=== PATIENT | male | born 1955 ===

== ENCOUNTER 2017-01-05 10:33 | Emergency (ER) | payer OTHER ==
[2017-01-05 11:03] VITALS: BP 140/92; PULSE 87; RESP 18; TEMP 96; O2SAT 99
--- NOTE | 2017-01-05 11:04 | ED PDOC ---
HPI: Skin/Bite Injury Time Seen by Provider: 01/05/17 10:48 Chief Complaint (Nursing): Abnormal Skin Integrity Chief Complaint (Provider): rash History Per: Patient Additional Complaint(s): 61-year-old male presents to emergency department with itchy rash to left arm that started one week ago and has now spread to his torso. Patient thinks he may have used a new lotion that caused the reaction. He denies any fever or chills, denies any throat discomfort and difficulty breathing. Patient has been applying aloe and Benadryl cream but he states the rash is worsening. Patient states left arm is now red and slightly swollen secondary to excess scratching. Denies recent travel. Past Medical History Reviewed: Historical Data, Nursing Documentation, Vital Signs - Medical History PMH: No Chronic Diseases - Surgical History Surgical History: Back Surgery - Family History Family History: States: No Known Family Hx - Living Arrangements Living Arrangements: With Family - Social History Current smoker - smoking cessation education provided: No Alcohol: Social Drugs: Denies - Home Medications Home Medications: Ambulatory Orders Medication Instructions Recorded Aspirin [Ecotrin] 81 mg PO DAILY #0 tabec 07/27/15 Atorvastatin [Lipitor] 10 mg PO DAILY #0 tab 07/27/15 Losartan [Cozaar] 25 mg PO DAILY #0 tab 07/27/15 Sulfamethoxazole/Trimethoprim 1 tab PO BID #14 tab 07/27/15 [Bactrim DS Tab] Valacyclovir HCl [Valtrex] 500 mg PO BID #14 tablet 07/27/15 amLODIPine [Norvasc] 10 mg PO DAILY #0 tab 07/27/15 Clindamycin [Cleocin] 300 mg PO TID #21 cap 01/05/17 Prednisone 50 mg PO DAILY #5 tablet 01/05/17 - Allergies Allergies/Adverse Reactions: Allergies Allergy/AdvReac Type Severity Reaction Status Date / Time No Known Allergies Allergy Verified 07/17/15 20:30 Review of Systems ROS Statement: Except As Marked, All Systems Reviewed And Found Negative Constitutional: Negative for: Fever ENT: Negative for: Throat Swelling Cardiovascular: Negative for: Chest Pain Respiratory: Negative for: Cough, Shortness of Breath, SOB with Exertion Skin: Positive for: Rash Physical Exam - Reviewed Nursing Documentation Reviewed: Yes Vital Signs Reviewed: Yes - Physical Exam Appears: Positive for: Well, Non-toxic, No Acute Distress Skin: Positive for: Rash (Maculopapular and urticarial lesions noted to left arm and torso. Skin excoriations, erythema and slight warmth noted locally to left arm consistent with mild cellulitis with no abscess formation) Cardiovascular/Chest: Positive for: Regular Rate, Rhythm Respiratory: Positive for: Normal Breath Sounds Back: Positive for: Normal Inspection Extremity: Negative for: Pedal Edema Neurologic/Psych: Positive for: Alert, Oriented - ECG O2 Sat by Pulse Oximetry: 99 Pulse Ox Interpretation: Normal Medical Decision Making Medical Decision Making: Impression: Allergic dermatitis Plan: IM Solu-Medrol Rx given for prednisone. Patient was advised to continue with Benadryl. Patient instructed to discontinue use of topical creams. Will also provide prescription for Clindamycin secondary to left forearm cellulitis. Patient was instructed to follow-up with primary doctor or clinic in 2-3 days and he is aware he can return to emergency department any time if acutely worse. Disposition - Clinical Impression Clinical Impression: Allergic dermatitis - Patient ED Disposition Is Patient to be Admitted: No Counseled Patient/Family Regarding: Diagnosis, Need For Followup, Rx Given - Disposition Referrals: [facility] [Outside] Disposition: Routine/Home Disposition Time: 11:06 Condition: STABLE Additional Instructions: Discontinue use of topical creams. Keep area clean and dry. Take prescription medications as directed. Take 2 tablets of Benadryl [id number] every 6 hours. Follow-up with clinic or primary doctor in 2-3 days. Prescriptions: Clindamycin [Cleocin] 300 mg PO TID #21 cap Prednisone 50 mg PO DAILY #5 tablet Instructions: Urticaria (ED), Dermatitis (ED)
== END 2017-01-05 12:34 | disposition home or self-care (01) ==
LOC: H.ER 10:33
DX: L23.9 Allergic contact dermatitis, unspecified cause (principal); L03.114 Cellulitis of left upper limb
CPT/HCPCS: 96372; 99283; J2930

== ENCOUNTER 2018-06-03 21:32 | Emergency (ER) | payer SELFPAY ==
[2018-06-03 21:58] VITALS: RESP 16
[2018-06-03] MEDS ORDERED: Sodium Chloride 0.9% 1,000 ML IV STA (22:32)
--- NOTE | 2018-06-03 22:50 | ED PDOC ---
HPI: General Adult Time Seen by Provider: 06/03/18 22:25 Chief Complaint (Nursing): Dizziness/Lightheaded Chief Complaint (Provider): Dizziness, Chills, Weakness History Per: Patient History/Exam Limitations: no limitations Onset/Duration Of Symptoms: Hrs (since this morning) Current Symptoms Are (Timing): Still Present Additional Complaint(s): 62 year old male presents to the ED for evaluation of dizziness, chills, weakness, and decreased appetite since waking up this morning. Patient reports that he had a previous diagnosis of high blood pressure, but is not on meds because he was been controlling it with lifestyle changes. Denies nausea, vomiting, and fever. He states he took Aspirin which helped, but the garlic his friend gave him did not help. Additionally, patient complaining of worsening severe right shoulder pain s/p sleeping on it oddly two weeks ago. He notes a history of right shoulder pain after falling off a ladder two years ago. PMD: none provided Past Medical History Reviewed: Historical Data, Nursing Documentation, Vital Signs Vital Signs: Last Vital Signs Temp 98.2 F 06/03/18 21:55 Pulse 80 06/03/18 21:55 Resp 16 06/03/18 21:55 BP 153/100 H 06/03/18 21:55 Pulse Ox 98 06/03/18 21:55 - Medical History PMH: HTN (previous diagnosis controlled by lifestyle changes) - Surgical History Surgical History: Back Surgery - Family History Family History: States: Unknown Family Hx - Social History Current smoker - smoking cessation education provided: No - Home Medications Home Medications: Ambulatory Orders Medication Instructions Recorded Aspirin [Ecotrin] 81 mg PO DAILY #0 tabec 07/27/15 Atorvastatin [Lipitor] 10 mg PO DAILY #0 tab 07/27/15 Losartan [Cozaar] 25 mg PO DAILY #0 tab 07/27/15 Sulfamethoxazole/Trimethoprim 1 tab PO BID #14 tab 07/27/15 [Bactrim DS Tab] Valacyclovir HCl [Valtrex] 500 mg PO BID #14 tablet 07/27/15 amLODIPine [Norvasc] 10 mg PO DAILY #0 tab 07/27/15 Clindamycin [Cleocin] 300 mg PO TID #21 cap 01/05/17 Prednisone 50 mg PO DAILY #5 tablet 01/05/17 amLODIPine [Norvasc] 10 mg PO DAILY #30 tab 06/04/18 - Allergies Allergies/Adverse Reactions: Allergies Allergy/AdvReac Type Severity Reaction Status Date / Time No Known Allergies Allergy Verified 06/03/18 21:55 Review of Systems ROS Statement: Except As Marked, All Systems Reviewed And Found Negative Constitutional: Positive for: Chills, Weakness Gastrointestinal: Negative for: Nausea, Vomiting Musculoskeletal: Positive for: Shoulder Pain (right) Neurological: Positive for: Dizziness Physical Exam - Reviewed Nursing Documentation Reviewed: Yes Vital Signs Reviewed: Yes - Physical Exam Appears: Positive for: Uncomfortable (but not in any acute distress) Head Exam: Positive for: ATRAUMATIC, NORMOCEPHALIC Skin: Positive for: Normal Color, Warm, Dry. Negative for: Rash Eye Exam: Positive for: Normal appearance Neck: Positive for: Normal, Painless ROM, Supple Cardiovascular/Chest: Positive for: Regular Rate, Rhythm Respiratory: Positive for: Normal Breath Sounds. Negative for: Respiratory Distress Gastrointestinal/Abdominal: Positive for: Normal Exam, Soft. Negative for: Tenderness Back: Positive for: Normal Inspection Extremity: Positive for: Normal ROM (of right shoulder but with pain on movement). Negative for: Deformity, Swelling Neurological/Psych: Positive for: Awake, Alert, Oriented (x3). Negative for: Motor/Sensory Deficits - Laboratory Results Result Diagrams: 06/03/18 22:56 06/03/18 22:56 - ECG O2 Sat by Pulse Oximetry: 98 (RA) Pulse Ox Interpretation: Normal Medical Decision Making Medical Decision Making: Time: 2231 Initial Impression: workup for dizziness and weakness Initial Plan: --BMP --CBC with differential --NS IV fluids --Toradol 30mg IVP for shoulder pain --XR right shoulder --Influenza swab --Reevaluation 2299 Patient care endorsed to Dr. Dougherty pending lab results and reevaluation. Scribe Attestation: Documented by Susy Morton, acting as a scribe for Tea Valles MD. Provider Scribe Attestation: All medical record entries made by the Scribe were at my direction and personally dictated by me. I have reviewed the chart and agree that the record accurately reflects my personal performance of the history, physical exam, medi keke decision making, and the department course for this patient. I have also personally directed, reviewed, and agree with the discharge instructions and disposition. Disposition - Clinical Impression Clinical Impression: Dizziness, Hypertension - Patient ED Disposition Is Patient to be Admitted: Transfer of Care - Disposition Referrals: [facility] [place] [Outside] [facility] [Outside] Disposition Time: 23:00 Condition: IMPROVED Prescriptions: amLODIPine [Norvasc] 10 mg PO DAILY #30 tab Instructions: High Blood Pressure (DC), Medicines for High Blood Pressure, Dizziness, Nonvertigo, (DC) Forms: [facility] (Cameroonian) Print Language: UKRAINIAN
[2018-06-03 23:01] LABS: BASO % 0.4 % (0.0-2.0); EOS # 0.1 K/uL (0.0-0.7); HEMOGLOBIN 14.3 g/dL (12.0-18.0); LYMPH # 2.2 K/uL (1.0-4.3); LYMPH % 41.1 % (20.0-40.0); MEAN CELL VOLUME 98.4 fl (80.0-94.0); MEAN CORPUSCULAR HEMOGLOBIN 33.7 pg (27.0-31.0); MEAN CORPUSCULAR HGB CONC 34.3 g/dL (33.0-37.0); MEAN PLATELET VOLUME 7.5 fl (7.2-11.7); MONO # 0.6 K/uL (0.0-0.8); MONO % 10.7 % (0.0-10.0); NEUT # 2.4 K/uL (1.8-7.0); NEUT % 45.8 % (50.0-75.0); NRBC % 0.1 % (0.0-0.0); RBC 4.24 Mil/uL (4.40-5.90); RED CELL DISTRIBUTION WIDTH 12.5 % (11.5-14.5); WHITE BLOOD COUNT 5.3 K/uL (4.8-10.8)
[2018-06-03 23:09] LABS: BLOOD UREA NITROGEN 18 mg/dl (9-20); CALCIUM 9.3 mg/dL (8.4-10.2); GFR NON-AFRICAN AMERICAN > 60
[2018-06-04 00:41] VITALS: BP 139/96; TEMP 98.4
[2018-06-04 00:49] VITALS: PULSE 73
--- NOTE | 2018-06-04 01:01 | ED PDOC ---
- Laboratory Results Result Diagrams: 06/03/18 22:56 06/03/18 22:56 - ECG O2 Sat by Pulse Oximetry: 97 (RA) Pulse Ox Interpretation: Normal Medical Decision Making Medical Decision Makin:00 Patient signed out to this provider by Dr. Valles pending lab results and re- evaluation. 00:52 [Used certified statistical secretary VANITA Rosenbaum] Results explained to patient On re-evaluation, patient reports complete resolution of symptoms. He is stable for discharge home. Return precautions provided. Patient states he has not taken his blood pressure medication for "a long time". Advised patient that he should start taking norvasc daily. Advised patient followup with [facility] for checkup. Very well appearing upon discharge. Scribe Attestation: Documented by Josette Santos, acting as a scribe Sara Dougherty MD Provider Scribe Attestation: All medical record entries made by the Scribe were at my direction and personal ly dictated by me. I have reviewed the chart and agree that the record accurately reflects my personal performance of the history, physical exam, medical decision making, and the department course for this patient. I have also personally directed, reviewed, and agree with the discharge instructions and disposition. Disposition - Clinical Impression Clinical Impression: Dizziness, Hypertension - POA Present On Arrival: None - Disposition Referrals: [facility] [place] [Outside] [facility] [Outside] Disposition: Routine/Home Disposition Time: 00:52 Condition: IMPROVED Prescriptions: amLODIPine [Norvasc] 10 mg PO DAILY #30 tab Instructions: High Blood Pressure (DC), Medicines for High Blood Pressure, Dizziness, Nonvertigo, (DC) Forms: [facility] (Frisian) Print Language: KOSOVAN
--- NOTE | 2018-06-04 10:03 | RAD ---
Date of service: 06/03/2018 PROCEDURE: Radiographs of the Right Shoulder HISTORY: right shoulder pain COMPARISON: No prior. TECHNIQUE: 3 views obtained. FINDINGS: BONES: Bone alignment and mineralization are normal. There is no acute displaced fracture or bone destruction. JOINTS: There is moderate degenerative osteoarthrosis in the acromioclavicular and glenohumeral joints with reduced joint spaces, marginal osteophytes and subarticular cystic changes in the greater tuberosity of the humerus. SOFT TISSUES: Normal. OTHER FINDINGS: None. IMPRESSION: No acute fracture or dislocation. Moderate degenerative osteoarthrosis in the acromioclavicular and glenohumeral joints.
[2018-06-05 04:52] VITALS: O2SAT 98
== END 2018-06-04 01:25 | disposition home or self-care (01) ==
LOC: H.ER 21:32
DX: R42 Dizziness and giddiness (principal); I10 Essential (primary) hypertension; M25.511 Pain in right shoulder
CPT/HCPCS: 73030; 80048; 85025; 87804; 96361; 96374; 99285; J1885; J7030